=== PATIENT | male | born 1960 | race Caucasian/White ===

== ENCOUNTER 2017-01-08 23:31 | Emergency (ER) | payer OTHER ==
[2017-01-08] MEDS ORDERED: ACETAMINOPHEN IV (For NPO) 1,000 MG in EMPTY BAG 1 BAG IVPB STA (23:35)
[2017-01-08 23:41] LABS: Glucose,Whole Blood 115 mg/dL (75-99)
[2017-01-08] MEDS ORDERED: ETOMIDATE 2 MG/ML 10 ML VIAL IVP STA (23:46)
--- NOTE | 2017-01-09 00:26 | XR ---
EXAM: XR Right Ankle, 1 view CLINICAL HISTORY: Reason: pain TECHNIQUE: Only a single frontal view of the right ankle was provided. COMPARISON: No relevant prior studies available. FINDINGS: Bones/joints: There is dislocation that appears to be between the level of the talus and calcaneus on this single view, with lateral dislocation of the foot in relation to the tibiotalar joint and talus. The talus itself remains aligned with the distal tibia on this single view. Soft tissues: Diffuse soft tissue thickening and scattered foci of air. IMPRESSION: Limited, single view, demonstrating katelynn hindfoot dislocation, probably between the talus and calcaneus. [employer] 01/09/17 00:38 Verify Receipt Verified receipt with [facility] Deal given to Dr. Osorio on 01/09 00:37 (-04:00)
[2017-01-09 00:30] LABS: Basophils # (A) 0.1 k/uL (0-0.2); Basophils % (A) 1 %; CH 31.3; CHCM 33.5; Eosinophils # (A) 0.2 k/uL (0-0.7); Eosinophils % (A) 2 %; HDW 2.16; Luc # (Auto) 0.17; Luc % (Auto) 2; Lymphocytes # (A) 3.2 k/uL (1.0-4.8); Lymphocytes % (A) 34 %; MCH 31.5 pg (25.0-35.0); MCHC 33.7 g/dL (31.0-37.0); MCV 93.6 fL (80.0-100.0); Mean Platelet Volume 7.9; Monocytes # (A) 0.5 k/uL (0-1.0); Monocytes % (A) 6 %; Neutrophils # (A) 5.4 k/uL (1.3-7.7); Neutrophils % (A) 57 %; RBC 4.27 m/uL (4.30-5.90); RDW 13.3 % (11.5-15.5); WBC 9.5 k/uL (3.8-10.6)
[2017-01-09 00:33] LABS: HGB 13.5 gm/dL (13.0-17.5)
[2017-01-09 00:35] LABS: INR 1.1 (<1.2); Partial Thromboplastin Time 23.5 sec (22.0-30.0); Prothrombin Time 11.4 sec (9.0-12.0)
[2017-01-09 00:36] LABS: ALT 38 U/L (21-72); AST 23 U/L (17-59); Alcohol <10 mg/dL; Alkaline Phosphatase 52 U/L (38-126); Amylase <30 U/L (30-110); Anion Gap 12 mmol/L; Blood Urea Nitrogen 12 mg/dL (9-20); Calcium 8.5 mg/dL (8.4-10.2); Carbon Dioxide 21 mmol/L (22-30); Chloride 106 mmol/L (98-107); Glucose 115 mg/dL (74-99); Non-African American GFR(MDRD) >60 (>60 ml/min/1.73 sqM); Potassium 3.7 mmol/L (3.5-5.1); Sodium 139 mmol/L (137-145); Total Bilirubin 0.4 mg/dL (0.2-1.3)
[2017-01-09] MEDS ORDERED: HYDROmorphone 2 MG/ML 1 ML SYRINGE IVP STA (00:39)
[2017-01-09 00:42] LABS: ABG PCO2 39 mmHg (35-45); ABG PH 7.38 (7.35-7.45); ABG PO2 >400 mmHg (83-108)
[2017-01-09 00:43] LABS: ABG Base Excess -1.6 mmol/L; ABG HCO3 23 mmol/L (21-25); ABG TCO2 24 mmol/L (19-24)
[2017-01-09 00:45] LABS: Creatine Kinase 140 U/L (55-170)
[2017-01-09] MEDS ORDERED: DIPH,PERTUS(ACELL)TETVAC-LF 0.5 ML VIAL IM ONE (00:54)
[2017-01-09] MEDS ORDERED: ceFAZolin 2 GM in SODIUM CHLORIDE 0.9% 100 ML IVPB STA (00:54)
--- NOTE | 2017-01-09 00:54 | ED ---
General Adult HPI - General Chief complaint: Extremity Injury, Lower Stated complaint: Fall/Ankle Injury Time Seen by Provider: 01/08/17 23:46 Source: patient, EMS, RN notes reviewed, old records reviewed Mode of arrival: EMS Limitations: no limitations - History of Present Illness Initial comments: This is a 56-year-old male brought to the ER for evaluation regarding fall, fall from great height, greater than 15 feet. Patient did land on her right ankle and complains of right ankle fracture. Patient is regular rate ankle fracture dislocation. Patient has coming in awake and alert, a little story of fall and denying any other pain or injury. No loss of consciousness no drugs or alcohol. - Related Data Allergies Allergy/AdvReac Type Severity Reaction Status Date / Time No Known Allergies Allergy Verified 01/08/17 23:44 Review of Systems ROS Statement: Those systems with pertinent positive or pertinent negative responses have been documented in the HPI. ROS Other: All systems not noted in ROS Statement are negative. Past Medical History Past Medical History: No Reported History History of Any Multi-Drug Resistant Organisms: None Reported Past Surgical History: No Surgical Hx Reported Past Psychological History: No Psychological Hx Reported Smoking Status: Never smoker Past Alcohol Use History: None Reported Past Drug Use History: None Reported General Exam Limitations: no limitations General appearance: alert, anxious, in distress Head exam: Present: atraumatic, normocephalic, normal inspection Eye exam: Present: normal appearance, PERRL, EOMI. Absent: scleral icterus, conjunctival injection, periorbital swelling ENT exam: Present: normal exam, mucous membranes moist Neck exam: Present: normal inspection. Absent: tenderness, meningismus, lymphadenopathy Respiratory exam: Present: normal lung sounds bilaterally. Absent: respiratory distress, wheezes, rales, rhonchi, stridor Cardiovascular Exam: Present: regular rate, normal rhythm, normal heart sounds. Absent: systolic murmur, diastolic murmur, rubs, gallop, clicks GI/Abdominal exam: Present: soft, normal bowel sounds. Absent: distended, tenderness, guarding, rebound, rigid Extremities exam: Present: normal inspection, full ROM, normal capillary refill , other (Right forefoot ankle dislocation fracture severe dislocation, pulsatile bleeding, no pulses). Absent: tenderness, pedal edema, joint swelling , calf tenderness Back exam: Present: normal inspection Neurological exam: Present: alert, oriented X3, CN II-XII intact Psychiatric exam: Present: normal affect, normal mood Skin exam: Present: warm, dry, intact, normal color. Absent: rash Course Vital Signs 01/08/17 23:35 Temperature 98.3 F Pulse Rate 62 Respiratory 16 Rate Blood Pressure 129/77 O2 Sat by Pulse 98 Oximetry - Reevaluation(s) Reevaluation #1: 01/09/17 00:50 Attempt to sedate patient and reduced ankle and forefoot fracture was made with failure of reduction, 01/09/17 00:50 Decision made inability patient secondary to without success with reduction and need for further sedation Reevaluation #2: 01/09/17 00:51 Soap with orthopedics on-call, will see patient emergency room 01/09/17 00:51 Orthopedics is evaluating patient emergency room, able to achieve successful reduction under sedation Reevaluation #3: 01/09/17 00:[address] transfer him [facility], not excepting fracture Reevaluation #4: 01/09/17 00:52 Patient initially refusing pain medication, GCS remains 15, decision to intubate was secondary to prolonged conscious sedation for reduction Procedures - Intubation Time Out Performed: Yes Sedative: Versed Paralytic: Succinylcholine Laryngoscope: Zev Size: 4 ET Tube Size: 8 ET Tube Uncuffed: Yes Tube Secured Location: teeth Tube Placement Confirmation: visualized tube passing through cords, equal breath sounds bilaterally, no breath sounds over epigastrium Patient Tolerated Procedure: well Intubation Complications: none - Orthopedic Fracture Reduction Fracture #1 Consent Obtained: verbal consent Time Out Performed: Yes Side: right Fracture Reduction Location: tibia, fibula, metatarsal Analgesia: procedural sedation Technique: direct manipulation, traction/counter-traction Post Reduction X-rays Demonstrate: other (Failure) Post-Reduction Neuro Exam: no change, other (No pre-pulses) Post-Reduction Vascular Exam: no change, other (No post pulses) Splint Applied: No Patient Tolerated Procedure: well - Orthopedic Joint Reduction Joint #1 Consent Obtained: verbal consent Time Out Performed: Yes Side: right Joint Reduction Location: ankle Analgesia: procedural sedation Technique Used: traction/counter-traction, direct manipulation Post-Reduction Neuro Exam: no change, other Post-Reduction Vascular Exam: no change, other (No pulse) Post Reduction X-Ray Obtained: Yes Post Reduction X-Ray Results: not reduced Splint Applied: Yes Patient Tolerated Procedure: well - Orthopedic Splinting/Casting Injury #1 Side: right Lower Extremity Injury Location: ankle Lower Extremity Immobilizer: posterior splint Medical Decision Making - Medical Decision Making 50 formality ER status post fall, follow-up severe right ankle injury, threatened to right foot, orthopedics did evaluate patient was able to reduce ankle, did have artery car doctor and reduction. Patient was intubated secondary to prolonged length of reduction and inability to initially reduce. Patient transferred to orthopedics for further evaluation at [facility] - Lab Data Result diagrams: 01/09/17 00:04 Lab Results 01/08/17 01/09/17 01/09/17 Range/Units 23:40 00:04 00:04 WBC 9.5 (3.8-10.6) k/uL RBC 4.27 L (4.30-5.90) m/uL Hgb 13.5 (13.0-17.5) gm/dL Hct 40.0 (39.0-53.0) % MCV 93.6 (80.0-100.0) fL MCH 31.5 (25.0-35.0) pg MCHC 33.7 (31.0-37.0) g/dL RDW 13.3 (11.5-15.5) % Plt Count 232 (150-450) k/uL Neutrophils % 57 % Lymphocytes % 34 % Monocytes % 6 % Eosinophils % 2 % Basophils % 1 % Neutrophils # 5.4 (1.3-7.7) k/uL Lymphocytes # 3.2 (1.0-4.8) k/uL Monocytes # 0.5 (0-1.0) k/uL Eosinophils # 0.2 (0-0.7) k/uL Basophils # 0.1 (0-0.2) k/uL PT 11.4 (9.0-12.0) sec INR 1.1 (<1.2) APTT 23.5 (22.0-30.0) sec Sample Site ABG pH (7.35-7.45) ABG pCO2 (35-45) mmHg ABG pO2 (83-108) mmHg ABG HCO3 (21-25) mmol/L ABG Total CO2 (19-24) mmol/L ABG O2 Saturation (94-97) % ABG Base Excess mmol/L FiO2 % POC Glucose (mg/dL) 115 H (75-99) mg/dL POC Glu Building Construction Foreman ID Nicole Lopez 01/09/17 Range/Units 00:22 WBC (3.8-10.6) k/uL RBC (4.30-5.90) m/uL Hgb (13.0-17.5) gm/dL Hct (39.0-53.0) % MCV (80.0-100.0) fL MCH (25.0-35.0) pg MCHC (31.0-37.0) g/dL RDW (11.5-15.5) % Plt Count (150-450) k/uL Neutrophils % % Lymphocytes % % Monocytes % % Eosinophils % % Basophils % % Neutrophils # (1.3-7.7) k/uL Lymphocytes # (1.0-4.8) k/uL Monocytes # (0-1.0) k/uL Eosinophils # (0-0.7) k/uL Basophils # (0-0.2) k/uL PT (9.0-12.0) sec INR (<1.2) APTT (22.0-30.0) sec Sample Site lbrac ABG pH 7.38 (7.35-7.45) ABG pCO2 39 (35-45) mmHg ABG pO2 >400 H (83-108) mmHg ABG HCO3 23 (21-25) mmol/L ABG Total CO2 24 (19-24) mmol/L ABG O2 Saturation 100.0 H (94-97) % ABG Base Excess -1.6 mmol/L FiO2 100 % POC Glucose (mg/dL) (75-99) mg/dL POC Glu Building [employer] Foreman ID - Radiology Data Radiology results: report reviewed (X-ray right ankle does show open talar fracture with significant dislocation, repeat postreduction x-ray does show significant to normal anatomy improvement), image reviewed Critical Care Time Critical Care Time: Yes Total Critical Care Time: 65 Disposition Clinical Impression: Foot fracture, right, Open right ankle fracture, Fall, Dislocation of right foot Disposition: OTHER INSTITUTION NOT DEFINED Condition: Serious Referrals: None,Stated [Primary Care Provider] - 1-2 days - Out of Hospital Transfer - Req. Specs Out of Hospital Transfer - Requested Specifics: Other Emergency Center ([facility]
[2017-01-09 00:58] LABS: Creatine Kinase MB 1.9 ng/mL (0.0-2.4); Troponin I <0.012 ng/mL (0.000-0.034)
--- NOTE | 2017-01-09 01:44 | XR ---
EXAM: XR Pelvis, 1 or 2 Views CLINICAL HISTORY: Reason: trauma TECHNIQUE: Frontal portable view of the pelvis. COMPARISON: No relevant prior studies available. FINDINGS: Bones/joints: Degenerative changes including within both hips and lower lumbar spine. No acute displaced fracture or dislocation is seen on this single frontal view. Soft tissues: Tiny left pelvic calcification is indeterminate, statistically a phlebolith. IMPRESSION: Limited, without acute displaced fracture or dislocation seen, as above.
--- NOTE | 2017-01-09 01:51 | XR ---
EXAM: XR Right Ankle, 2 Views CLINICAL HISTORY: Reason: open fx right ankle TECHNIQUE: Frontal and lateral views of the right ankle. COMPARISON: Earlier single frontal view of the right ankle. FINDINGS: Artifacts: An external cast is now present, creating some artifact. Bones/joints: Interval reduction of the previous hindfoot dislocation. There are ossific fragments seen about the talus and calcaneus, including inferior to the lateral malleolus, and there is a tiny ossific density along the dorsal margin of the navicular. Degenerative changes are noted at the tibiotalar joint. Soft tissues: There is again soft tissue air present. IMPRESSION: Interval reduction of the previous hindfoot dislocation, as above, and which could be further assessed by CT if clinically indicated.
--- NOTE | 2017-01-09 01:55 | XR ---
EXAM: XR Chest, 1 View CLINICAL HISTORY: Reason: open fx right ankle TECHNIQUE: Frontal view of the chest. COMPARISON: No relevant prior studies available. FINDINGS: Lungs: Hypoventilatory changes with bronchovascular crowding. No superimposed infiltrate is seen. Pleural space: Unremarkable. No pneumothorax. Heart: Mild enlargement of the cardiomediastinal silhouette, in all likelihood accentuated by portable supine technique and low lung volumes. Mediastinum: See above. Bones/joints: Degenerative changes without acute displaced fracture seen. Tubes, lines and devices: ET tube in satisfactory position. NG tube courses into the stomach, tip not included. IMPRESSION: Diminished lung volumes, and mild prominence of the cardiomediastinal silhouette, as above.
[2017-01-09 02:06] VITALS: BP 100/51; PULSE 70; RESP 14; TEMP 97.2
--- NOTE | 2017-01-09 16:37 | CONS ---
DATE OF SERVICE: 01/08/2017 Mr. Sharma was seen by me by way of an emergent consultation in the emergency room on 01/08/17. The patient was brought to the emergency room after sustaining a fall from a ladder of greater than 15 feet high. Apparently the patient landed onto his right ankle, sustained an open fracture dislocation of his ankle and was brought to the emergency room by EMS. When I arrived at the emergency room after being consulted I found the patient to be intubated on the gurney in the trauma bay at the hospital. There was a large amount of blood about the floor and bed and obvious open fracture and dislocation of his right ankle. Preliminary x-rays demonstrated a fracture dislocation of the right talus. Currently there was active bleeding from the site. An attempt of a tourniquet was made, but it was unable to stop the bleeding. At that time the patient's pulses were nearly absent and an emergent reduction was performed by myself. This was done after placing sterile gloves and after a difficult time, the fracture was reduced. After the fracture was reduced, there was noted to be a large pumping vessel on the medial side of the ankle where the open laceration was located. The laceration appeared to be approximately 10-12 cm in size. There were multiple torn tendons as well as bony exposure. The vessel was clamped and then tied off. The tourniquet was released and the clamp was removed from the vessel and all bleeding had been controlled at that time. A sterile dressing was then placed over the open wound and a well padded posterior splint was placed. X-rays were obtained in the splint and it showed the fracture reduced in good position and alignment. While this was being done the emergency room contacted [facility] for an urgent transfer and this was in the process during this entire procedure. Also, after the reduction and before placement of the splint, a Doppler dorsalis pedis pulse was able to be obtained although it was quite faint. It was also noted that capillary refill of the toes was extremely poor and there was significant concern of the vascular status of the extremity. After placement of the splint the EMS arrived in order to transfer the patient. IMPRESSION: 1. Open fracture dislocation, right talus. 2. Significant blood loss. PROCEDURE: 1. Reduction, open fracture dislocation of the right talus. 2. Control of bleeding, right lower extremity. 3. Splinting of the extremity. 4. Urgent transfer to tertiary care facility. TAYLOR
--- NOTE | 2017-01-18 02:56 | CDI ---
Dear Hernan Schulz DO: Please mention the duration of sedation and also need clarification whether the sedation performed by orthopedic physician or yourself. Thank you, Milana Mcrae, Safety Associate. If you have any questions, please contact Home Service Director at [phone]. [facility]
== END 2017-01-09 01:16 | disposition short-term general hospital (02) ==
LOC: EC 23:31
DX: S92.101B Unspecified fracture of right talus, initial encounter for open fracture (principal); R40.2412 Glasgow coma scale score 13-15, at arrival to emergency department; Z23 Encounter for immunization; W11.XXXA Fall on and from ladder, initial encounter; Y92.009 Unspecified place in unspecified non-institutional (private) residence as the place of occurrence of the external cause
CPT/HCPCS: 28435; 31500; 36415; 36600; 71010; 72170; 80053; 80320; 82150; 82550; 82553; 82805; 83690; 84484; 85025; 85610; 85730; 86850; 86900; 86901; 86920; 90471; 90715; 94002; 99156; 99157; 99291

== ENCOUNTER 2022-05-08 08:51 | Day surgery (SDC) | payer OTHER ==
[2022-05-07 08:50] VITALS: BMI 33.6
[~2022-05-08 08:51] MED LIST: LACTATED RINGERS 1,000 ML IV SCH
[2022-05-08 09:35] VITALS: TEMP 97
[2022-05-08] MEDS ORDERED: PROPOFOL 10 MG/ML 20 ML VIAL IV ONE (09:54)
[2022-05-08] MEDS ORDERED: GLYCOPYRROLATE 0.2 MG/ML 2 ML VIAL ONE (09:54)
--- NOTE | 2022-05-08 09:58 | P.GSHP ---
History of Present Illness H&P Date: 05/08/22 Chief Complaint: Colon cancer screening 61-year-old male here today for colonoscopy. He has not had 1 previously. No bowel complaints. No family history of colon cancer. Past Medical History Past Medical History: GERD/Reflux, Pneumonia History of Any Multi-Drug Resistant Organisms: None Reported Past Surgical History: Tonsillectomy Additional Past Surgical History / Comment(s): surgery for undescending testicle, rt ankle surgery after injury Past Anesthesia/Blood Transfusion Reactions: Motion Sickness Smoking Status: Never smoker - Past Family History Father Family Medical History: Cancer Mother Family Medical History: Cancer Medications and Allergies Home Medications Medication Instructions Recorded Confirmed Type No Known Home Medications 05/07/22 05/07/22 History Allergies Allergy/AdvReac Type Severity Reaction Status Date / Time perfume Allergy congestion,runny Verified 05/08/22 09:30 nose poison cholo extract Allergy Rash/Hives Verified 05/08/22 09:30 Sulfa (Sulfonamide Allergy Rash/Hives Verified 05/08/22 09:30 Antibiotics) Surgical - Exam Vital Signs Temp Pulse Resp BP Pulse Ox 97 F L 53 L 18 127/73 98 05/08/22 09:32 05/08/22 09:32 05/08/22 09:32 05/08/22 09:32 05/08/22 09:32 Physical exam: General: Well-developed, well-nourished HEENT: Normocephalic, sclerae nonicteric Abdomen: Nontender, nondistended Extremities: No edema Neuro: Alert and oriented Assessment and Plan Assessment: Will proceed with colonoscopy at this time.
--- NOTE | 2022-05-08 10:17 | P.PCN ---
Date of Procedure: 05/08/22 Procedure(s) Performed: PREOPERATIVE DIAGNOSIS: Colon cancer screening POSTOPERATIVE DIAGNOSIS: Rectal polyp PROCEDURE: Colonoscopy with snare polypectomy ANESTHESIA: MAC SURGEON: Cam Carnes M.D. SPECIMENS: Polyp ENDOSCOPIC PROCEDURE: The patient was placed on the endoscopy table in the left decubitus position. The Olympus colonoscope was inserted into the anus and passed under direct visualization to the base of the cecum. The appendiceal orifice was visualized. From that point the scope was slowly withdrawn inspecting all surfaces carefully. There were no neoplastic inflammatory or polypoid lesions throughout the cecum, ascending, transverse, descending, and sigmoid colon. In the rectum at 18-20 cm there was a pedunculated polyp that was removed using the snare with cautery technique. This measured about 9-10 mm in diameter. There was no visible diverticulosis. The remainder of the rectum was normal. Digital rectal examination was normal. The patient was taken to the recovery room in stable condition per anesthesia guidelines. RECOMMENDATIONS: Await biopsy results. May require short-term follow-up.
[2022-05-08 10:40] VITALS: BP 123/81; PULSE 60; RESP 18
== END 2022-05-08 11:27 | disposition home or self-care (01) ==
LOC: ORWHC2ENDO 08:51
PROVIDERS: ATTEND Surgery
DX: Z12.11 Encounter for screening for malignant neoplasm of colon (principal); D12.8 Benign neoplasm of rectum; K21.9 Gastro-esophageal reflux disease without esophagitis; Z87.01 Personal history of pneumonia (recurrent); Z90.89 Acquired absence of other organs; Z86.2 Personal history of diseases of the blood and blood-forming organs and certain disorders involving the immune mechanism; Z80.9 Family history of malignant neoplasm, unspecified; Z88.2 Allergy status to sulfonamides; Z91.048 Other nonmedicinal substance allergy status; Z98.890 Other specified postprocedural states
CPT/HCPCS: 88305; 45385; J2704